=== PATIENT | female | born 1985 | race African-American/Black ===

== ENCOUNTER 2024-04-24 01:23 | Emergency (ER) | payer BC ==
[~2024-04-24] VITALS: Ht 160 cm; Wt 62.1 kg
[2024-04-24] MEDS: KETOROLAC TROMETHAMINE 30 MG/ML VIAL IV STA (02:08)
[2024-04-24] MEDS: METOCLOPRAMIDE HCL 10 MG/2ML VIAL IV ONE (02:08)
[2024-04-24] MEDS ORDERED: REGLAN10 MG PO (03:42)
[2024-04-24 03:45] VITALS: PULSE 67; RESP 14; TEMP 98.1
[2024-04-24 03:46] VITALS: BP 103/61; PULSE 67; RESP 14; TEMP 98.1; O2SAT 98
== END 2024-04-24 03:51 | disposition home or self-care (01) ==
LOC: FSED 01:37
DX: R51.9 Headache, unspecified (principal); R42 Dizziness and giddiness; D64.9 Anemia, unspecified
CPT/HCPCS: 70450; 85025; 99283; J1885; J2765

== ENCOUNTER 2024-12-02 09:05 | Emergency (ER) | payer OTHER ==
[~2024-12-02] VITALS: Ht 162.6 cm; Wt 62.6 kg
[~2024-12-02 09:05] MED LIST: CEPHALEXIN250 MG/5 M PO; KEFLEX125 MG/5 M PO; REGLAN10 MG PO
[2024-12-02] MEDS ORDERED: KETOROLAC TROMETHAMINE 30 MG/ML VIAL ONE (10:17)
[2024-12-02] MEDS: KETOROLAC TROMETHAMINE 30 MG/ML VIAL IM STA (10:25)
[2024-12-02 11:29] VITALS: PULSE 60; RESP 16; TEMP 97.2; O2SAT 99
== END 2024-12-02 11:29 | disposition home or self-care (01) ==
LOC: FSED 09:28
DX: R10.32 Left lower quadrant pain (principal); S39.011A Strain of muscle, fascia and tendon of abdomen, initial encounter; X50.0XXA Overexertion from strenuous movement or load, initial encounter; Y92.89 Other specified places as the place of occurrence of the external cause; D64.9 Anemia, unspecified
CPT/HCPCS: 74176; 80048; 81003; 85025; 96372; 99284; J1885